=== PATIENT | male | born 1945 | race Caucasian/White ===

== ENCOUNTER 2018-05-26 15:42 | Emergency (ER) | payer MEDICARE, MEDICAID ==
[~2018-05-26] VITALS: Ht 177.8 cm; Wt 90.7 kg
[~2018-05-26 15:42] MED LIST: ASP325T PO; ASP81CT PO; ASP81TEC PO; ATEN25TA PO; CLOP75TA PO; NTR.4SL SL; OMEG-59 PO; OMEG1CAP58 PO; PRAV80TA2 PO; PRV20T PO; PRX10T PO; RANO500T2 PO; TR1O15 TOP
--- OUTSIDE RECORDS SUMMARY | 2018-05-26 15:46 | XMS REPORT | Continuity of Care Document ---
Author Author [facility] Organization [facility] Address Unknown Phone Unavailable Care Team Providers Care Wide Area Network Systems Administrator Name Role Phone ABIGAIL HERRERA MD PP Insurance Providers Payer Name Policy Number Subscriber Name [id number] Mal Sauer Self / Same As Patient W[employer] Medicare [id number] Mal Sauer Self / Same As Patient Advance Directives Directive Response Recorded Date Advance Directives N 02/05/12 8:37am Health Care Power of Silverware Washer N 02/05/12 8:37am Organ Donor N 02/05/12 8:37am Problems No Known Problems or Medical conditions. Allergies, Adverse Reactions, Alerts Allergen Type Severity Reaction Last Updated Penicillins Allergy Unknown 12/04/10 ibuprofen Allergy Unknown 12/04/10 Ampicillin Allergy Unknown 12/04/10 Medications Medication Dose Units Route Sig Qty Days Ranolazine (Ranexa) 500 Mg PO BID [place]-3 Fatty Acids/Fish Oil (Hm Fish Oil 1,200 Mg Softgel) 1200 Mg PO DAILY Aspirin (Aspirin Ec 81 Mg) 81 Mg PO DAILY Pravastatin Sodium 80 Mg PO DAILY Atenolol (Tenormin 25 Mg) 25 Mg PO DAILY Clopidogrel Bisulfate (Plavix 75 Mg) 75 Mg PO DAILY Nitroglycerin (Nitrostat) 0.4 Mg SL Q5MIN X 3 DOSES PRN Paroxetine HCl (Paxil 10 Mg) 10 Mg PO DAILY [place]-3/[place]-6/[place]-9 Fatty Acids (Lovaza 1000 Mg) 1000 Mg PO DAILY Triamcinolone Acetonide (Triamcinolone 0.1% Oint) 0 TOP BID Immunizations Name Given Type Date of Pneumonia Vaccine 01/16/11 H Response Recorded Date/Time Status not known Unknown Results Test Date Result Interp. Ref. Range Activated Partial Thromboplast Time February 05, 2012 8: 37am 31 SEC N 24-35 Alanine Aminotransferase (ALT/SGPT) February 05, 2012 8: 37am 39 U/L N 30-65 Albumin February 05, 2012 8:37am 4.2 G/ DL N 3.4-5.0 Alkaline Phosphatase February 05, 2012 8:37am 111 U/L N 50-136 Aspartate Amino Transf (AST/SGOT) February 05, 2012 8:37am 21 U/L N 15-37 B-Type Natriuretic Peptide December 05, 2010 6:24am 22.7 PG/ML N 5.0-100.0 BUN/Creatinine Ratio February 05, 2012 8:37am 12 - Blood Urea Nitrogen February 05, 2012 8:37am 17 MG/DL N 7-18 C-Reactive Protein High Sensitivity December 05, 2010 6: 24am 2.75 H MG/L - Calcium Level February 05, 2012 8:37am 8.7 MG/DL N 8.5-10.1 Carbon Dioxide Level February 05, 2012 8:37am 30 MMOL/L N 21-32 Chloride Level February 05, 2012 8:37am 106 MMOL/L N 101-110 Cholesterol Level December 05, 2010 6:24am 155 MG/DL N -200 Creatinine February 05, 2012 8:37am 1.4 MG/DL H 0.6-1.3 Glucose Level February 05, 2012 8:37am 108 MG/DL H 74-106 HDL Cholesterol December 05, 2010 6:24am 31 MG/DL L 35-60 Hematocrit February 05, 2012 8:37am 45 % N 40-54 Hemoglobin February 05, 2012 8:37am 15.3 G/DL N 13.3-17.7 LDL Cholesterol December 05, 2010 6:24am 96 MG/DL N 0-129 Mean Corpuscular Hemoglobin February 05, 2012 8:37am 32 PG N 25-34 Mean Corpuscular Hemoglobin Concent February 05, 2012 8: 37am 34 G/DL N 32-36 Mean Corpuscular Volume February 05, 2012 8:37am 95 FL N 80-99 Mean Platelet Volume February 05, 2012 8:37am 9.0 FL N 7.4-10.4 Platelet Count February 05, 2012 8:37am 228 10^3/uL N 130-400 Potassium Level February 05, 2012 8:37am 3.9 MMOL/L N 3.6-5.0 Prothromb Time International Ratio February 05, 2012 8:37am 0.8 N 0.8-1.4 Prothrombin Time February 05, 2012 8:37am 11.9 SEC L 12.2-14.7 Red Blood Count February 05, 2012 8:37am 4.79 10^6/uL N 4.35-5.85 Red Cell Distribution Width February 05, 2012 8:37am 13.8 % N 10.0-14.5 Sodium Level February 05, 2012 8:37am 140 MMOL/L N 135-145 Total Bilirubin February 05, 2012 8:37am 0.3 MG/DL N 0.0-1.0 Total Protein February 05, 2012 8:37am 7.7 G/DL N 6.4-8.2 Triglycerides Level December 05, 2010 6:24am 139 MG/DL N 30.0-150.0 Urine Bacteria December 04, 2010 12:40pm NEGATIVE - Urine Bilirubin December 04, 2010 12:40pm NEGATIVE - Urine Casts December 04, 2010 12:40pm NONE - Urine Clarity December 04, 2010 12:40pm CLEAR - Urine Color December 04, 2010 12:40pm YELLOW - Urine Crystals December 04, 2010 12:40pm NONE - Urine Culture Indicated December 04, 2010 12:40pm NO - Urine Glucose (UA) December 04, 2010 12:40pm NEGATIVE - Urine Ketones December 04, 2010 12:40pm NEGATIVE - Urine Leukocyte Esterase December 04, 2010 12:40pm NEGATIVE - Urine Mucus December 04, 2010 12:40pm NEGATIVE - Urine Nitrite December 04, 2010 12:40pm NEGATIVE - Urine Protein December 04, 2010 12:40pm NEGATIVE - Urine RBC December 04, 2010 12:40pm NONE /HPF - Urine Specific [place] December 04, 2010 12:40pm 1.010 L - Urine Squamous Epithelial Cells December 04, 2010 12:40pm NONE - Urine Urobilinogen December 04, 2010 12:40pm NORMAL MG/DL - Urine WBC December 04, 2010 12:40pm NONE /HPF - Urine pH December 04, 2010 12:40pm 6.0 - VLDL Cholesterol December 05, 2010 6:24am 28 MG/DL N 5-40 White Blood Count February 05, 2012 8:37am 6.6 10^3/uL N 4.3-11.0 Estimat Glomerular Filtration Rate February 05, 2012 8:37am 50 - Urine RBC (Auto) December 04, 2010 12:40pm NEGATIVE - Procedures Procedure Code Date MRSA Screen 02/05/12
--- OUTSIDE RECORDS SUMMARY | 2018-05-26 15:46 | XMS REPORT | Continuity of Care Document ---
Author Author [facility] Address Unknown Phone Unavailable Allergies Active Description Code Type Severity Reaction Onset Reported/Identified Relationship to Patient Clinical Status Yes ampicillin Drug Allergy N/A N/A 07/19/2009 Yes Penicillins Drug Allergy N/A N/A 07/19/2009 Yes ampicillin Drug Allergy 07/19/2009 Yes Penicillins Drug Allergy 07/19/2009 Yes ibuprofen Drug Allergy N/A N/A 11/17/2010 Yes ibuprofen Drug Allergy 11/17/2010 Medications There is no data. Problems Date Dx Coded Attending Type Code Diagnosis Diagnosed By 07/19/2009 780.6 FEVER 07/19/2009 780.79 Fatigue 07/19/2009 788.1 Dysuria 07/19/2009 REYNOLDS DO, ALISON K 780.6 FEVER 07/19/2009 REYNOLDS DO, ALISON K 780.79 Fatigue 07/19/2009 REYNOLDS DO, ALISON K 788.1 Dysuria 07/19/2009 REYNOLDS DO, ALISON K 780.6 FEVER 07/19/2009 REYNOLDS DO, ALISON K 780.79 Fatigue 07/19/2009 REYNOLDS DO, ALISON K 788.1 Dysuria 10/31/2009 401.9 Combined Systolic And Diastolic Elevation 10/31/2009 414.00 ASYMPTOMATIC CORONARY ARTERIOSCLEROSIS 10/31/2009 786.50 Chest Pain 10/31/2009 REYNOLDS DO, ALISON K 401.9 Combined Systolic And Diastolic Elevation 10/31/2009 REYNOLDS DO, ALISON K 414.00 ASYMPTOMATIC CORONARY ARTERIOSCLEROSIS 10/31/2009 REYNOLDS DO, ALISON K 786.50 Chest Pain 10/31/2009 REYNOLDS DO, ALISON K 401.9 Combined Systolic And Diastolic Elevation 10/31/2009 REYNOLDS DO, ALISON K 414.00 ASYMPTOMATIC CORONARY ARTERIOSCLEROSIS 10/31/2009 REYNOLDS DO, ALISON K 786.50 Chest Pain 09/12/2010 272.4 OTHER AND UNSPECIFIED HYPERLIPIDEMIA 09/12/2010 311 DEPRESSIVE DISORDER NOT ELSEWHERE CLASSIFIED 09/12/2010 REYNOLDS DO, ALISON K 272.4 OTHER AND UNSPECIFIED HYPERLIPIDEMIA 09/12/2010 ALISON REYNOLDS DO 311 DEPRESSIVE DISORDER NOT ELSEWHERE CLASSIFIED 09/12/2010 ALISON REYNOLDS DO 272.4 OTHER AND UNSPECIFIED HYPERLIPIDEMIA 09/12/2010 ALISON REYNOLDS DO 311 DEPRESSIVE DISORDER NOT ELSEWHERE CLASSIFIED 10/24/2010 692.9 Contact Dermatitis And Other Eczema Unspecified Cause 10/24/2010 ARTHUR REYNOLDS DOA K 692.9 Contact Dermatitis And Other Eczema Unspecified Cause 10/24/2010 ALISON REYNOLDS DO K 692.9 Contact Dermatitis And Other Eczema Unspecified Cause 01/15/2011 461.9 ACUTE SINUSITIS UNSPECIFIED 01/15/2011 ALISON REYNOLDS DO K 461.9 ACUTE SINUSITIS UNSPECIFIED 01/15/2011 ALISON REYNOLDS DO K 461.9 ACUTE SINUSITIS UNSPECIFIED 05/02/2011 401.1 HYPERTENSION, BENIGN ESSENTIAL 05/02/2011 ALISON REYNOLDS DO 401.1 HYPERTENSION, BENIGN ESSENTIAL 05/02/2011 ALISON REYNOLDS DO 401.1 HYPERTENSION, BENIGN ESSENTIAL 10/01/2012 ALISON REYNOLDS DO 786.09 DYSPNEA Procedures Code Description Performed By Performed On Cardiolog Torie Joseph 10/01/2012 Results There is no data. Encounters ACCT No. Visit Date/Time Discharge Status Pt. Type Provider Facility Loc./Unit Complaint [id number] 10/01/2012 08:39:00 10/01/2012 23:59:59 [place] [id number] 09/26/2011 08:58:00 09/26/2011 23:59:59 CLS Outpatient ALISON REYNOLDS DO [id number] 01/30/2012 09:14:00 Document Registration [id number] 10/08/2012 07:41:00 10/08/2012 15:25:00 DIS Outpatient [id number] 10/01/2012 10:36:00 10/01/2012 23:59:59 CLS Outpatient
[2018-05-26 17:14] VITALS: BP 128/56
--- NOTE | 2018-05-26 18:20 | ED Upper Extremity ---
General Chief Complaint: Upper Extremity Stated Complaint: LT HAND INJ Nursing Triage Note: Pt arrived by private vehicle with a chief complaint of left hand injury. Pt had a 200-250lbs transmission land on pts hand around 1430. Pt stated it was a small base and fell on arnterior side/palm. Pt stated shooting pain up arm/elbow. Pt stated pain is pressure/throbbing. Pt has mild swelling and bruising on posterior part of hand. Nursing Sepsis Screen: No Definite Risk History of Present Illness Date Seen by Provider: May 26, 2018 Time Seen by Provider: 18:09 This is a 73-year-old man who injured his left hand when he was working on a vehicle and a transmission fell on the proximal hand/distal wrist. He denies any other injuries. He has no weakness numbness or tingling although movement makes the pain worse. The pain is sore, constant, better with rest, does not radiate. Moderate severity. Allergies and Home Medications Allergies Coded Allergies: Penicillins (Verified Allergy, Unknown, 12/04/10) ampicillin (Verified Allergy, Unknown, 12/04/10) ibuprofen (Verified Allergy, Unknown, 12/04/10) Home Medications Aspirin 81 Mg Tabec, 81 MG PO DAILY, (Reported) Atenolol 25 Mg Tablet, 25 MG PO DAILY, (Reported) Clopidogrel Bisulfate 75 Mg Tablet, 75 MG PO DAILY, (Reported) Nitroglycerin 0.4 Mg Subl, 0.4 MG SL Q5MIN X 3 DOSES PRN, (Reported) NEEDED FOR CHEST PAIN [place]-3 Fatty Acids/Fish Oil 1 Each Capsule, 1,200 MG PO DAILY, (Reported) Paroxetine Hcl 10 Mg Tablet, 10 MG PO DAILY, (Reported) Pravastatin Sodium 80 Mg Tablet, 80 MG PO DAILY, (Reported) Ranolazine 500 Mg Tab.sr.12h, 500 MG PO BID, (Reported) Tramadol HCl 50 Mg Tablet, 50 MG PO Q6H PRN for PAIN Prescribed by: GASTON BURDICK on 05/26/18 2969 Patient Home Medication List Home Medication List Reviewed: Yes Review of Systems Constitutional: see HPI EENTM: see HPI Respiratory: see HPI Cardiovascular: see HPI Gastrointestinal: see HPI Genitourinary: see HPI Musculoskeletal: see HPI Skin: see HPI Psychiatric/Neurological: No Symptoms Reported, See HPI Past Pxskngo-Ecelll-Udztjl Hx Past Med/Social Hx: Reviewed Nursing Past Med/Soc Hx Patient Social History 2nd Hand Smoke Exposure: No Recent Foreign Travel: No Contact w/Someone Who Travel: No Recent Infectious Disease Expo: No Physical Abuse: No Sexual Abuse: No Mistreated: No Fear: No Immunizations Up To Date Tetanus Booster (TDap): Unknown Date of Pneumonia Vaccine: Jan 16, 2011 Physical Exam Vital Signs Vital Signs - First Documented Capillary Refill : Less Than 3 Seconds Height, Weight, BMI Height: 5'10.00" Weight: 200lbs. 0oz. 90.434771ku; BMI Method:Estimated General Appearance: no apparent distress HEENT: normal ENT inspection Neck: supple Cardiovascular: normal peripheral pulses, regular rate, rhythm Respiratory: lungs clear Gastrointestinal: non tender, soft Wrist: Yes swelling (there is some tenderness over the proximal radial left hand and distal radius, inspection of the skin is grossly unremarkable) Neurologic/Tendon: other (radial, median, ulnar nerve function all intact in affected extremity) Skin: warm/dry Progress/Results/Core Measures Results/Orders My Orders Orders - GASTON BURDICK DO Hydrocodone/Apap 5/325 Tablet (Lortab 5 (05/26/18 18:22) Vital Signs/I&O 05/26/18 05/26/18 05/26/18 05/26/18 17:14 17:14 19:14 19:18 Temp 98.2 98.2 98.2 98.2 Pulse 62 62 65 65 Resp 18 18 18 18 B/P (MAP) 128/56 (80) 128/56 (80) 134/79 (97) 134/79 (97) Pulse Ox 93 92 94 94 O2 Delivery Room Air Room Air Room Air Room Air Blood Pressure Mean: 80 Progress Progress Note : Progress Note Patient has tenderness in the left distal radius and adjacent area of the hand after a transmission fell on his hand shortly prior to arrival. No pain or tenderness in the proximal forearm, x-rays are nonspecific, we will place patient in a thumb spica splint and have referred him to follow-up with orthopedics. Departure Impression Primary Impression: Crushing injury of left hand Disposition: HOME, SELF-CARE Condition: Stable Departure-Patient Inst. Referrals: ABIGAIL HERRERA MD (PCP) Primary Care Physician MARIBEL SNYDER (Family) Primary Care Physician CHARLEY KHAN MD Patient Instructions: Hand Fracture (DC) Scripts Tramadol HCl (Tramadol HCl) 50 Mg Tablet 50 MG PO Q6H PRN for PAIN for 3 Days, #12 TAB 0 Refills Prov: GASTON BURDICK DO 05/26/18 GASTON BURDICK DO May 26, 2018 18:19
[2018-05-26] MEDS ORDERED: HYDROcodone/APAP 5 MG/325 MG (LORTAB) TAB PO STA (18:22)
--- NOTE | 2018-05-26 19:04 | Diagnostic Imaging Report ---
INDICATION: Dropped transmission on hand, pain. EXAMINATION: Left hand, 05/26/2018. FINDINGS: Three views of the hand. Perhaps due to technique, there are linear densities in the dorsal aspect of the carpals of uncertain etiology. A fracture in the region is not excluded. However, no abnormality is seen in this area on the subsequent views. The remaining osseous structures are unremarkable. No dislocations. IMPRESSION: 1. Nonspecific densities noted on the lateral view dorsal to the carpals, which could be artifactual. A fracture in the region not excluded. Dictated by: Dictated on workstation # [id number]
--- NOTE | 2018-05-26 19:04 | Diagnostic Imaging Report ---
INDICATION: Dropped transmission on hand. Wrist pain. EXAMINATION: Left wrist dated 05/26/2018. FINDINGS: Three views of the wrist. Again on the lateral view just as on the hand radiographs, there is a linear density along the dorsum of the hand suggesting possible metacarpal fractures; however, artifact not excluded given this is not appreciated on the other views; clinical correlation recommended. The remaining visualized osseous structures are intact. IMPRESSION: 1. Nonspecific linear densities dorsally along the hand as described; please see above description and correlate for point tenderness. Dictated by: Dictated on workstation # [id number]
[2018-05-26] MEDS ORDERED: TRAM50TA2 PO (19:09)
[2018-05-26 19:14] VITALS: BP 134/79
[2018-05-26 19:18] VITALS: BP 134/79
== END 2018-05-26 19:15 | disposition home or self-care (01) ==
LOC: EDUNIT# 15:42 → ER FS 15:43
DX: S67.42XA Crushing injury of left wrist and hand, initial encounter (principal); Z88.0 Allergy status to penicillin; Z88.6 Allergy status to analgesic agent; Z79.82 Long term (current) use of aspirin; W20.8XXA Other cause of strike by thrown, projected or falling object, initial encounter
CPT/HCPCS: 73110; 73130